=== PATIENT | male | born 1970 | race Caucasian/White ===

== ENCOUNTER 2017-01-22 07:27 | Emergency (ER) | payer OTHER ==
[~2017-01-22] VITALS: Ht 157.5 cm; Wt 91.3 kg
[2017-01-22 07:30] VITALS: Ht 157.5 cm; Wt 91.3 kg
--- NOTE | 2017-01-22 08:08 | ERD ---
ER Documentation Chief Complaint Chief Complaint Comnp[plains of rectal bleed since x 1 week HPI 46-year-old male with history of pituitary tumor on bromocriptine ambulatory to the emergency department complaining of rectal bleeding and weight loss. Over the last 4 months she has had intermittent episodes of illness, bright red rectal bleeding most recently yesterday. Nausea but no vomiting, diarrhea, constipation or hematemesis. Unintentional 25 pound weight loss over the last month but denies anorexia. Has been feeling increasingly weak and lightheaded over the last several days. No chest pain or palpitations. Denies headache, visual changes, focal weakness or numbness. No neck or back pain. No fevers, chills or night sweats. Anxiety and stress but denies depression. Evaluated by his primary care physician and diagnosed with internal hemorrhoids. ROS All systems reviewed and are negative except as per history of present illness. Allergies Allergies: Coded Allergies: No Known Allergy (Unverified , 01/22/17) PMhx/Soc Reviewed in chart. As per HPI. History of Surgery: No Hx Neurological Disorder: Yes (Benign pituitary tumor) Hx Respiratory Disorders: No Hx Cardiac Disorders: No Hx Psychiatric Problems: No Hx Miscellaneous Medical Probl: No Hx Alcohol Use: Yes (Social) Hx Substance Use: No Hx Tobacco Use: No FmHx No stroke, cancer or sudden cardiac Physical Exam Vitals Vital Signs Date Time Temp Pulse Resp B/P Pulse Ox O2 Delivery O2 Flow Rate FiO2 01/22/17 11:49 87 18 118/94 98 Room Air 01/22/17 07:30 97.4 40 20 153/80 98 Physical Exam Const: Alert, anxious. Head: Atraumatic Eyes: Normal Conjunctiva ENT: Normal External Ears, Nose and Mouth. Neck: Full range of motion. Nontender, no meningismus. Resp: Sounds are equal and clear to auscultation bilaterally Cardio: Regular rate and rhythm, no murmurs Abd: Soft, non tender, non distended. Normal bowel sounds. Rectal examination: Normal tone, no masses, brown stool which is heme-negative. Skin: No petechiae or rashes Back: No midline or flank tenderness Ext: No cyanosis, or edema Neur: Awake and alert. No focal deficit observed. Psych: Patient appears anxious but not depressed. Result Diagram: 01/22/17 0750 01/22/17 0750 Results 24 hrs Laboratory Tests Test 01/22/17 07:50 01/22/17 08:04 White Blood Count 9.410^3/ul Red Blood Count 5.4010^6/ul Hemoglobin 16.5g/dl Hematocrit 49.0% Mean Corpuscular Volume 90.7fl Mean Corpuscular Hemoglobin 30.6pg Mean Corpuscular Hemoglobin Concent 33.7g/dl Red Cell Distribution Width 12.9% Platelet Count 34842^3/UL Mean Platelet Volume 9.9fl Neutrophils % 61.8% Lymphocytes % 29.0% Monocytes % 7.2% Eosinophils % 1.1% Basophils % 0.6% Nucleated Red Blood Cells % 0.0/100WBC Neutrophils # 5.810^3/ul Lymphocytes # 2.710^3/ul Monocytes # 0.710^3/ul Eosinophils # 0.110^3/ul Basophils # 0.110^3/ul Nucleated Red Blood Cells # 0.010^3/ul Prothrombin Time 13.3Sec Prothrombin Time Ratio 1.0 INR International Normalized Ratio 1.00 Activated Partial Thromboplast Time 36.5Sec Sodium Level 144mmol/L Potassium Level 3.6mmol/L Chloride Level 102mmol/L Carbon Dioxide Level 28mmol/L Anion Gap 18 Blood Urea Nitrogen 13mg/dl Creatinine 0.92mg/dl Glucose Level 94mg/dl Calcium Level 8.9mg/dl Total Bilirubin 0.7mg/dl Direct Bilirubin 0.00mg/dl Indirect Bilirubin 0.7mg/dl Aspartate Amino Transf (AST/SGOT) 36IU/L Alanine Aminotransferase (ALT/SGPT) 42IU/L Alkaline Phosphatase 91IU/L Troponin I < 0.012ng/ml Total Protein 7.7g/dl Albumin 4.2g/dl Globulin 3.50g/dl Albumin/Globulin Ratio 1.20 Magnesium Level 2.0mg/dl LABS: Unremarkable EKG: TIME: 7: 36. Sinus rhythm. Ventricular rate 81. Frequent PVCs. No acute ST segment elevation or depression. No ectopy. EP Interpretation: Abnormal EKG. IMAGING: PROCEDURE: CT Abdomen and Pelvis without contrast. CLINICAL INDICATION: Weight loss, rectal bleeding. TECHNIQUE: CT scan of the abdomen and pelvis without contrast was performed on a multidetector high-resolution CT scanner. The patient was scanned without intravenous contrast. Coronal and sagittal reformatted images were obtained from the axial source images. Images were reviewed on a high-resolution PACS workstation. The total exam CTDI equals 16.82 mGy and the total exam DLP equals 1079.54 mGy-cm. One or the following dose reduction techniques were used: -Automated exposure control. -Adjustment of the mA and/or KV according to patient's size. -Use of iterative reconstruction technique. DICOM images are available. COMPARISON: None. FINDINGS: Lower thorax: Unremarkable. GI:. There is mild apparent thickening of the mucosa of the gastric fundus. Liver: Unremarkable. Gallbladder: Unremarkable. Pancreas: Unremarkable. Spleen: Unremarkablel Adrenals: Unremarkable. Kidneys: There is left-sided nephrolithiasis without evidence of urolithiasis or obstructive uropathy. Bladder: Unremarkable. Pelvic Organs: Unremarkable. Skeleton: Normal for age. Other: Small bilateral inguinal hernias containing fat only, right greater than left. IMPRESSION: 1. Mild apparent thickening of the mucosa in the gastric fundus. This is of uncertain significance on this noncontrast study. Further evaluation may be warranted. 2. Left-sided nephrolithiasis without evidence of obstructive uropathy. 3. Normal appearing appendix visualized. 4. Small inguinal hernias containing fat only. 5. No mass, lymphadenopathy or evidence of an acute inflammatory process. RPTAT: [facility] Physician Srinivas Date Time Electronically viewed and signed by Physician Srinivas on 01/22/2017 11: 07 JH/ Procedures/MDM DOCUMENTS REVIEWED: ED nurse, no prior records available REEXAMINATION/REEVALUATION: Time: 9:00. Well. Abdomen soft nontender. Sinus rhythm without ectopy. MEDICAL DECISION MAKIN-year-old male with history of pituitary tumor on bromocriptine ambulatory to the emergency department complaining of rectal bleeding and weight loss. Hemoglobin is normal and stool is negative for blood hence no active GI bleeding at this time. Recent weight loss CT abd/pelvis is remarkable for thickening of the gastric fundal mucosa which is of uncertain etiology. No diverticulosis or mass but neoplasm is not ruled out and the patient will need urgent outpatient follow-up and endoscopy. EKG revealed multiple PVCs that resolved without treatment. No chest pain, ischemic EKG changes, elevated troponin or other signs of ACS. Potassium and magnesium were normal. Hemodynamically stable. Stable for discharge of precautionary instructions and outpatient follow-up as counseled. Counseled patient regarding diagnosis, diagnostic tests and need for follow-up. Patient clearly understands that a serious etiology of his symptoms including but not limited to neoplasm is not ruled out in urgent outpatient follow-up or return to the ED if symptoms worsen is mandatory. Departure Diagnosis: Primary Impression: Rectal bleeding Additional Impressions: History of pituitary adenoma Weight loss PVCs (premature ventricular contractions) Condition: Stable CHASIDY BARRETT MD Jan 22, 2017 08:08
[2017-01-22 08:20] LABS: BASOPHIL # 0.1 10^3/ul (0.0-0.1); BASOPHILS % 0.6 % (0.0-2.0); EOSINOPHILS # 0.1 10^3/ul (0.0-0.5); EOSINOPHILS % 1.1 % (0.0-7.0); HEMOGLOBIN 16.5 g/dl (14.0-18.0); LYMPHOCYTES # 2.7 10^3/ul (0.8-2.9); MEAN CORPUSCULAR HEMOGLOBIN 30.6 pg (29.0-33.0); MEAN CORPUSCULAR HGB CONC 33.7 g/dl (32.0-37.0); MEAN CORPUSCULAR VOLUME 90.7 fl (82.0-101.0); MEAN PLATELET VOLUME 9.9 fl (7.4-10.4); MONOCYTE # 0.7 10^3/ul (0.3-0.9); MONOCYTES % 7.2 % (0.0-11.0); NEUTROPHIL # 5.8 10^3/ul (1.6-7.5); NEUTROPHILS % 61.8 % (39.0-77.0); PLATELET COUNT 254 10^3/UL (140-415); RED CELL DISTRIBUTION WIDTH 12.9 % (11.5-14.5); WHITE BLOOD COUNT 9.4 10^3/ul (4.8-10.8)
[2017-01-22 08:36] LABS: PROTIME 13.3 Sec (11.9-14.9)
[2017-01-22 08:37] LABS: PARTIAL THROMBOPLASTIN TIME 36.5 Sec (25.0-35.0)
[2017-01-22 08:55] LABS: ALANINE AMINOTRANSFERASE 42 IU/L (13-69); ALBUMIN 4.2 g/dl (3.3-4.9); ALKALINE PHOSPHATASE 91 IU/L (42-121); ANION GAP 18 (8-16); ASPARTATE AMINO TRANSFERASE 36 IU/L (15-46); BILIRUBIN,INDIRECT 0.7 mg/dl (0-1.1); BILIRUBIN,TOTAL 0.7 mg/dl (0.2-1.3); BLOOD UREA NITROGEN 13 mg/dl (7-20); CALCIUM 8.9 mg/dl (8.4-10.2); CARBON DIOXIDE 28 mmol/L (21-31); CHLORIDE 102 mmol/L (97-110); CREATININE 0.92 mg/dl (0.61-1.24); GLUCOSE 94 mg/dl (70-220); POTASSIUM 3.6 mmol/L (3.5-5.1); SODIUM 144 mmol/L (135-144); TOTAL PROTEIN 7.7 g/dl (6.1-8.1)
[2017-01-22 09:08] LABS: TROPONIN-I < 0.012 ng/ml (0.00-0.12)
--- NOTE | 2017-01-22 11:08 | RADRPT ---
PROCEDURE: CT Abdomen and Pelvis without contrast. CLINICAL INDICATION: Weight loss, rectal bleeding. TECHNIQUE: CT scan of the abdomen and pelvis without contrast was performed on a multidetector hig h-resolution CT scanner. The patient was scanned without intravenous contrast. Coronal and sagittal reformatted images were obtained from the axial source images. Images were reviewed on a high-resol [employer] PACS workstation. The total exam CTDI equals 16.82 mGy and the total exam DLP equals 1079.54 m Gy-cm. One or the following dose reduction techniques were used: -Automated exposure control. -Adjustment of the mA and/or KV according to patient's size. -Use of iterative reconstruction technique. DICOM images are available. COMPARISON: None. FINDINGS: Lower thorax: Unremarkable. GI:. There is mild apparent thickening of the mucosa of the gastric fundus. Liver: Unremarkable. Gallbladder: Unremarkable. Pancreas: Unremarkable. Spleen: Unremarkablel Adrenals: Unremarkable. Kidneys: There is left-sided nephrolithiasis without evidence of urolithiasis or obstructive uropath y. Bladder: Unremarkable. Pelvic Organs: Unremarkable. Skeleton: Normal for age. Other: Small bilateral inguinal hernias containing fat only, right greater than left. IMPRESSION: 1. Mild apparent thickening of the mucosa in the gastric fundus. This is of uncertain significance o n this noncontrast study. Further evaluation may be warranted. 2. Left-sided nephrolithiasis without evidence of obstructive uropathy. 3. Normal appearing appendix visualized. 4. Small inguinal hernias containing fat only. 5. No mass, lymphadenopathy or evidence of an acute inflammatory process. RPTAT: [facility] Physician Srinivas Date Time Electronically viewed and signed by Physician Srinivas on 01/22/2017 11:07 /
[2017-01-22 11:49] VITALS: BP 118/94; PULSE 87; RESP 18
== END 2017-01-22 11:56 | disposition home or self-care (01) ==
LOC: E/R 07:27
DX: K62.5 Hemorrhage of anus and rectum (principal); R63.4 Abnormal weight loss; I49.3 Ventricular premature depolarization; Z86.018 Personal history of other benign neoplasm
CPT/HCPCS: 36415; 74176; 80053; 83735; 84484; 85025; 85610; 85730; 86850; 86900; 86901; 93005; Z7502

== ENCOUNTER 2017-08-08 05:55 | Emergency (ER) | END 2017-08-08 16:17 | disposition home or self-care (01) ==

== ENCOUNTER 2018-02-14 14:53 | Emergency (ER) | payer SELFPAY ==
[~2018-02-14] VITALS: Ht 175.3 cm; Wt 92.6 kg
[~2018-02-14 14:53] MED LIST: BROM2.5T16 PO
[2018-02-14 14:56] VITALS: Ht 175.3 cm; Wt 92.6 kg
== END 2018-02-14 19:01 | disposition left against medical advice (07) ==
LOC: E/R 14:53
DX: Z53.21 Procedure and treatment not carried out due to patient leaving prior to being seen by health care provider (principal)

== ENCOUNTER 2018-03-23 11:08 | Observation (INO) | payer OTHER ==
[~2018-03-23] VITALS: Ht 177.8 cm; Wt 95.6 kg
[2018-03-23] MEDS ORDERED: ASPIRIN 81 MG TAB PO STA (11:24)
[2018-03-23] MEDS ORDERED: NITROGLYCERIN 2% 1 GM OINT PKT TD STA (11:24)
[2018-03-23] MEDS ORDERED: NITROGLYCERIN (SL) 0.4 MG TAB SL PRN ×2 (11:30→15:00)
[2018-03-23] MEDS ORDERED: TEST1.25 TD (12:07)
[2018-03-23] MEDS ORDERED: ONDANSETRON 4 MG INJ IV PRN ×2 (13:00→15:00)
[2018-03-23] MEDS ORDERED: ACETAMINOPHEN 325 MG TAB PO PRN ×2 (13:00→15:00)
--- NOTE | 2018-03-23 13:10 | ERD ---
ER Documentation Chief Complaint Chief Complaint CHEST PAIN, SENT BY PCP FOR ABNORMAL EKG HPI Patient is a 47-year-old male with no medical problems who presents with chest pain. The patient was sent by his doctor for chest pain and abnormal EKG. If left-sided chest pain which started a long time ago but said that today it was associated with shortness of breath. He has had no treatment as of yet. He is on AndroGel for a pituitary issue that he had in the past. Upon review of old medical records this is the patient's fifth visit to the ER since 2017. ROS All systems reviewed and are negative except as per history of present illness. Medications Home Meds Reported Medications Testosterone* (Androgel*) 1.62%-1.25gm Gel..ea., 1.25 GM TD 2 TIMES PER WEEK, PACKET 03/23/18 Bromocriptine Mesylate* (Parlodel*) 2.5 Mg Tablet, 2.5 MG PO DAILY, TAB 08/08/17 Allergies Allergies: Coded Allergies: No Known Allergy (Unverified , 03/23/18) PMhx/Soc History of Surgery: No Anesthesia Reaction: No Hx Neurological Disorder: Yes (Benign pituitary tumor) Hx Respiratory Disorders: No Hx Cardiac Disorders: No Hx Psychiatric Problems: No Hx Miscellaneous Medical Probl: No Hx Alcohol Use: Yes (Social) Hx Substance Use: No Hx Tobacco Use: No FmHx Family History: No coronary disease Physical Exam Vitals Vital Signs Date Temp Pulse Resp B/P (MAP) Pulse Ox O2 O2 Flow FiO2 Time Delivery Rate 03/23/18 Nasal 2 11:25 Cannula 03/23/18 97.6 46 17 159/92 100 11:11 (114) Physical Exam Const: No acute distress Head: Atraumatic Eyes: Normal Conjunctiva ENT: Normal External Ears, Nose and Mouth. Neck: Full range of motion. No meningismus. Resp: Clear to auscultation bilaterally Cardio: Regular rate and rhythm, no murmurs Abd: Soft, non tender, non distended. Normal bowel sounds Skin: No petechiae or rashes Back: No midline or flank tenderness Ext: No cyanosis, or edema Neur: Awake and alert Psych: Normal Mood and Affect Result Diagram: 03/23/18 1124 03/23/18 1124 Results 24 hrs Laboratory Tests Test 03/23/18 11:24 White Blood Count 5.5 10^3/ul Red Blood Count 5.02 10^6/ul Hemoglobin 15.5 g/dl Hematocrit 46.0 % Mean Corpuscular Volume 91.6 fl Mean Corpuscular Hemoglobin 30.9 pg Mean Corpuscular Hemoglobin Concent 33.7 g/dl Red Cell Distribution Width 13.1 % Platelet Count 223 10^3/UL Mean Platelet Volume 9.5 fl Immature Granulocytes % 0.400 % Neutrophils % 57.5 % Lymphocytes % 31.6 % Monocytes % 8.7 % Eosinophils % 1.1 % Basophils % 0.7 % Nucleated Red Blood Cells % 0.0 /100WBC Immature Granulocytes # 0.020 10^3/ul Neutrophils # 3.2 10^3/ul Lymphocytes # 1.8 10^3/ul Monocytes # 0.5 10^3/ul Eosinophils # 0.1 10^3/ul Basophils # 0.0 10^3/ul Nucleated Red Blood Cells # 0.0 10^3/ul Sodium Level 140 mmol/L Potassium Level 3.9 mmol/L Chloride Level 106 mmol/L Carbon Dioxide Level 27 mmol/L Anion Gap 7 Blood Urea Nitrogen 18 mg/dl Creatinine 0.83 mg/dl Est Glomerular Filtrat Rate mL/min > 60 mL/min Glucose Level 101 mg/dl Calcium Level 9.0 mg/dl Troponin I < 0.012 ng/ml Current Medications Medications Dose Sig/Surekha Start Time Status Last (Trade) Ordered Route PRN Stop Time Admin Dose Reason Admin Aspirin 162 mg ONCE STAT 03/23/18 DC 03/23/18 (Aspirin) PO 11:24 11:36 03/23/18 11:25 1 inch ONCE STAT 03/23/18 DC 03/23/18 Nitroglycerin TD 11:24 11:36 03/23/18 11:25 (Nitroglyceri n 2% Oint) 1 tab Q5M UP TO 3 03/23/18 03/23/18 Nitroglycerin DOSES PRN 11:30 11:42 SL .CHEST (Nitroglyceri PAIN n (Sl Tab) 0.4 Mg) Ondansetron 4 mg ER BRIDGE 03/23/18 HCl (Zofran PRN IV 13:00 Inj) NAUSEA/VOMITI 03/24/18 12:59 NG 650 mg ER BRIDGE 03/23/18 Acetaminophen PRN PO 13:00 (Tylenol .MILD PAIN 03/24/18 12:59 Tab) 1-3 OR TEMP Procedures/MDM EKG read by me: Rate/Rhythm: Regular rate and rhythm at a normal rate Intervals: Normal Impression: No ST elevations but there are frequent PVCs Chest x-ray read by radiology. Patient is a 47-year-old male who presents with chest pain and abnormal EKG. The patient was given aspirin and nitroglycerin. The patient will be admitted to a telemetry observation bed to the panel team. I doubt pneumonia, pneumothorax, pulmonary embolism, or aortic dissection. Departure Diagnosis: Primary Impression: Chest pain Chest pain type: unspecified Qualified Codes: R07.9 - Chest pain, unspecified Condition: OLVIN Foster MD Mar 23, 2018 13:10
--- NOTE | 2018-03-23 14:56 | HP ---
Date/Time of Note Date/Time of Note DATE: 03/23/18 TIME: 14:49 Assessment/Plan VTE Prophylaxis SCD applied (from Nsg): Yes Pharmacological prophylaxis: NA/contraindicated Pharm contraindication: low risk/ambulating Lines/Catheters IV Catheter Type (from Nrsg): Saline Lock Assessment/Plan Hospital Course SUBJECTIVE: Seen and evaluated patient in ER room 12. Denies any acute discomfort, chest pain, palpitation or others. OBJECTIVE: Vital signs-see below PHYSICAL EXAM: Constitutional: Well-developed, adequately built, lying in bed comfortably. Psych: nl mood/affect, no complaints Head: atraumatic, normocephalic Eyes: nl conjunctiva, nl sclera ENMT: mucosa pink and moist, nl external ears & nose Neck: non-tender, supple Respiratory: clear to auscultation, normal air movement Cardiovascular: nl pulses, regular rate and rhythm Gastrointestinal: non-tender, soft, bowel sounds active in all 4 quadrants. Musculoskeletal/extremities: nl extremities to inspection, motor strength equal bilaterally, no focal deficit. Normal pulses,no cyanosis, no edema. Neurological: Alert oriented 3,nl speech, nl strength Skin: nl turgor ASSESSMENT/PLAN: 47-year-old male with a history of pituitary tumor on hormonal replacement, sent by PCP for evaluation of chest pain occurred 2 months ago, noted to have abnormal EKG. 1. Abnormal EKG w/PAC -Patient reported chest pain occurred 2 months ago,currently no pain. -Repeat EKG showed sinus rhythm with PAC. -Cardiology consult -Complete ACS rule out with serial troponin, serial EKGs. -Aspirin prophylaxis, PRN nitroglycerin if chest pain occurs -Monitor lites, add magnesium level. -Obtain TSH level. 2. History of pituitary tumor -Resume home medication DVT prophylaxis: SCDs PUD prophylaxis: Pepcid CODE STATUS: Full code Diet: Low-cholesterol/low-fat diet. Rest of the management depend on hospital course. Approximately 60 m spent on this history and physical. Patient was seen in collaboration with Result Diagram: 03/23/18 1124 03/23/18 1124 Results 24hrs Laboratory Tests Test 03/23/18 11:24 White Blood Count 5.5 Red Blood Count 5.02 Hemoglobin 15.5 Hematocrit 46.0 Mean Corpuscular Volume 91.6 Mean Corpuscular Hemoglobin 30.9 Mean Corpuscular Hemoglobin Concent 33.7 Red Cell Distribution Width 13.1 Platelet Count 223 Mean Platelet Volume 9.5 Immature Granulocytes % 0.400 Neutrophils % 57.5 Lymphocytes % 31.6 Monocytes % 8.7 Eosinophils % 1.1 Basophils % 0.7 Nucleated Red Blood Cells % 0.0 Immature Granulocytes # 0.020 Neutrophils # 3.2 Lymphocytes # 1.8 Monocytes # 0.5 Eosinophils # 0.1 Basophils # 0.0 Nucleated Red Blood Cells # 0.0 Sodium Level 140 Potassium Level 3.9 Chloride Level 106 Carbon Dioxide Level 27 Anion Gap 7 Blood Urea Nitrogen 18 Creatinine 0.83 Est Glomerular Filtrat Rate mL/min > 60 Glucose Level 101 Calcium Level 9.0 Troponin I < 0.012 HPI/ROS Admit Date/Time Admit Date/Time Hx of Present Illness 47-year-old male with a benign history of pituitary tumor, on hormonal replacement therapy, was sent by the primary care physician for further inpatient cardiac workup for abnormal EKG with PVCs. Apparently, patient went to PCP office for checkup and reported having vague chest discomfort and breathing difficulties happened 2 months ago. PCP did do an EKG which showed PVCs with nonspecific T changes. He did not have any palpitation, breathing difficulties, nausea, vomiting, abdominal pain, loss of consciousness, dizziness, diaphoresis, numbness, tingling, fever, chills or other constitutional symptoms. In ER, a repeat EKG showed sinus rhythm with occasional PVCs. There was no ST or T wave changes. Labs unremarkable,initial troponin negative. Chest x-ray stable. Patient was given aspirin 162 mg and nitroglycerin 1 inch patch in the ER. ROS A 12 point review of system was assessed and is negative other than what is mentioned in the HPI PMH/Family/Social Past Medical History See HPI Medications Current Medications Nitroglycerin (Nitroglycerin (Sl Tab) 0.4 Mg) 1 tab Q5M UP TO 3 DOSES PRN SL .CHEST PAIN Last administered on 03/23/18at 11:42; Admin Dose 1 TAB; Start 03/23/18 at 11:30 Ondansetron HCl (Zofran Inj) 4 mg ER BRIDGE PRN IV NAUSEA/VOMITING; Start 03/23/18 at 13:00; Stop 03/24/18 at 12:59 Acetaminophen (Tylenol Tab) 650 mg ER BRIDGE PRN PO .MILD PAIN 1-3 OR TEMP; Start 03/23/18 at 13:00; Stop 03/24/18 at 12:59 Coded Allergies: No Known Allergy (Unverified , 03/23/18) Past Surgical History None Social History Denied history of alcohol, smoking or illicit drug use. Smoking Status: Never smoker Exam/Review of Systems Vital Signs Vitals Vital Signs Date Temp Pulse Resp B/P (MAP) Pulse Ox O2 O2 Flow FiO2 Time Delivery Rate 03/23/18 72 18 124/84 98 Room Air 13:11 (97) 03/23/18 2 11:25 03/23/18 97.6 11:11 ANASTASIIA GOMEZ NP Mar 23, 2018 14:56
[2018-03-23 15:00] VITALS: Ht 177.8 cm; Wt 95.6 kg
[2018-03-23] MEDS ORDERED: morphine 2 MG INJ IV PRN (15:00)
[2018-03-23] MEDS ORDERED: NACL 0.9% 3 ML SYG IV SCH (15:00)
[2018-03-23] MEDS ORDERED: DOCUSATE SODIUM 100 MG CAP PO PRN (15:00)
[2018-03-23 15:08] VITALS: BP 114/75; PULSE 57; RESP 16
[2018-03-23 15:24] VITALS: PULSE 59
--- NOTE | 2018-03-23 15:48 | CONS ---
Assessment/Plan Assessment/Plan Hospital Course (Demo Recall) PVCs Preserved ejection fraction echocardiogram August 2017 Normal cardiac perfusion study August 2017 Pituitary tumor -Patient was sent from the primary care physician secondary to abnormal echoca rdiogram. As mentioned he is asymptomatic with no symptoms of chest pain, shortness of breath, palpitations, dizziness. I assume the abnormality seen was borderline inferior Q waves and PVCs. Patient with recent cardiac workup at our facility done in August 2017 with normal cardiac perfusion study on stress test and preserved ejection fraction. Patient ordered for second set of cardiac enzymes, would also get magnesium level ideally maintain above 2.0 given PVCs. With that said, given patient is asymptomatic, no further inpatient cardiac workup necessary at the current time. Consultation Date/Type/Reason Admit Date/Time Type of Consult Cardiology Reason for Consultation Cardiology evaluation Date/Time of Note DATE: 03/23/18 TIME: 15:42 Hx of Present Illness This is a 47-year-old male with past medical history of pituitary tumor who presents from his primary care doctor secondary to an abnormal ECG. Patient went to see his physician secondary to joint pains going on for the past few months. As per the patient, when the physician was auscultating his heart, he heard irregularities. ECG was performed and given the findings, he was brought to the emergency room. Patient denies any symptoms of chest pain, shortness of breath, dizziness, palpitations at rest or with activity. His last episode of chest discomfort was over the summer time when he was at our facility and underwent cardiac evaluation. 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 12 point review of systems was performed with all pertinent positives and negatives mentioned above and all else is negative Past Medical History Pituitary tumor Home Meds Reported Medications Testosterone* (Androgel*) 1.62%-1.25gm Gel..ea., 1.25 GM TD 2 TIMES PER WEEK, PACKET 03/23/18 Bromocriptine Mesylate* (Parlodel*) 2.5 Mg Tablet, 2.5 MG PO DAILY, TAB 08/08/17 Medications Current Medications Bromocriptine Mesylate (Parlodel) 2.5 mg DAILY PO ; Start 03/24/18 at 09:00 IV Flush (NS 3 ml) 3 ml PER PROTOCOL IV ; Start 03/23/18 at 15:00 Ondansetron HCl (Zofran Inj) 4 mg Q6H PRN IV NAUSEA/VOMITING; Start 03/23/18 at 15:00 Acetaminophen (Tylenol Tab) 650 mg Q6H PRN PO .PAIN 1-3 OR TEMP; Start 03/23/18 at 15:00 Morphine Sulfate (morphine) 2 mg Q4H PRN IV .SEVERE PAIN 7-10; Start 03/23/18 at 15:00 Docusate Sodium (Colace) 100 mg Q12H PRN PO .CONSTIPATION; Start 03/23/18 at 15:00 Famotidine (Pepcid) 20 mg Q12 PO ; Start 03/23/18 at 21:00 Aspirin (Aspirin) 81 mg DAILY PO ; Start 03/24/18 at 09:00 Nitroglycerin (Nitroglycerin (Sl Tab) 0.4 Mg) 1 tab Q5M PRN SL ANGINA; Start at 15:00 Allergies: Coded Allergies: No Known Allergy (Unverified , 03/23/18) Social History Smoking Status: Never smoker Exam/Review of Systems Vital Signs Vitals Vital Signs Date Temp Pulse Resp B/P (MAP) Pulse Ox O2 O2 Flow FiO2 Time Delivery Rate 03/23/18 59 15:24 03/23/18 98.2 16 114/75 95 15:08 (88) 03/23/18 Room Air 14:29 03/23/18 2 11:25 Exam Constitutional: alert, oriented, well developed (No apparent distress, family bedside) Head: normocephalic Respiratory: clear to auscultation, normal air movement Cardiovascular: regular rate and rhythm (S1-S2 heard, no murmurs appreciated) Gastrointestinal: soft, non-tender, bowel sounds Extremities: other (No significant edema) Labs Result Diagram: 03/23/18 1124 03/23/18 1124 Results 24hrs Laboratory Tests Test 03/23/18 11:24 White Blood Count 5.5 Red Blood Count 5.02 Hemoglobin 15.5 Hematocrit 46.0 Mean Corpuscular Volume 91.6 Mean Corpuscular Hemoglobin 30.9 Mean Corpuscular Hemoglobin Concent 33.7 Red Cell Distribution Width 13.1 Platelet Count 223 Mean Platelet Volume 9.5 Immature Granulocytes % 0.400 Neutrophils % 57.5 Lymphocytes % 31.6 Monocytes % 8.7 Eosinophils % 1.1 Basophils % 0.7 Nucleated Red Blood Cells % 0.0 Immature Granulocytes # 0.020 Neutrophils # 3.2 Lymphocytes # 1.8 Monocytes # 0.5 Eosinophils # 0.1 Basophils # 0.0 Nucleated Red Blood Cells # 0.0 Sodium Level 140 Potassium Level 3.9 Chloride Level 106 Carbon Dioxide Level 27 Anion Gap 7 Blood Urea Nitrogen 18 Creatinine 0.83 Est Glomerular Filtrat Rate mL/min > 60 Glucose Level 101 Calcium Level 9.0 Troponin I < 0.012 Imaging Imaging ECG performed at our facility demonstrates sinus rhythm at 80 bpm, PVCs, QRS 106 ms, no significant ischemic ST abnormalities ECG performed this morning at an outside facility at 10:44 AM demonstrates sinus rhythm, PVCs, borderline inferior Q waves, no significant ischemic abnormalities Medications Medications Current Medications Bromocriptine Mesylate (Parlodel) 2.5 mg DAILY PO ; Start 03/24/18 at 09:00 IV Flush (NS 3 ml) 3 ml PER PROTOCOL IV ; Start 03/23/18 at 15:00 Ondansetron HCl (Zofran Inj) 4 mg Q6H PRN IV NAUSEA/VOMITING; Start 03/23/18 at 15:00 Acetaminophen (Tylenol Tab) 650 mg Q6H PRN PO .PAIN 1-3 OR TEMP; Start 03/23/18 at 15:00 Morphine Sulfate (morphine) 2 mg Q4H PRN IV .SEVERE PAIN 7-10; Start 03/23/18 at 15:00 Docusate Sodium (Colace) 100 mg Q12H PRN PO .CONSTIPATION; Start 03/23/18 at 15:00 Famotidine (Pepcid) 20 mg Q12 PO ; Start 03/23/18 at 21:00 Aspirin (Aspirin) 81 mg DAILY PO ; Start 03/24/18 at 09:00 Nitroglycerin (Nitroglycerin (Sl Tab) 0.4 Mg) 1 tab Q5M PRN SL ANGINA; Start 03/23/18 at 15:00 Cyrus Corona DO Mar 23, 2018 15:48
[2018-03-23 16:21] VITALS: PULSE 66
--- NOTE | 2018-03-23 18:50 | NUR ---
EOSS- Pt resting in bed comfortably, no complaints of any pain or discomfort. Pt on RA, VS stable. Pending discharge tomorrow once labs are completed. Will endorse care to nightshift.
[2018-03-23 20:00] VITALS: BP 126/70; PULSE 64; PULSE 73; RESP 19
[2018-03-23] MEDS: FAMOTIDINE 20 MG TAB PO SCH (21:09)
[2018-03-24] VITALS: BP 125/66; PULSE 40; PULSE 67; RESP 19
[2018-03-24 04:00] VITALS: BP 120/76; PULSE 58; PULSE 60; RESP 19
--- NOTE | 2018-03-24 06:28 | NUR ---
EOSS N: A&Ox4, no complaints of pain. R: RA, saturating well, no sob or dyspnea CV: NSR, SB. No Chest pain GI/: Unremarkable MS: Ambulates, steady. POC: Troponin negative x2. Waiting for echo, labs. Most likely dc today.
[2018-03-24 07:11] VITALS: BP 123/86; PULSE 54; RESP 19
[2018-03-24 08:00] VITALS: PULSE 85
--- NOTE | 2018-03-24 08:44 | PDOCDIS ---
Discharge Instructions CONDITION [id number] Patient Condition: [id number] Stable HOME CARE INSTRUCTIONS: [id number] Diet Instructions: [id number] Regular FOLLOW UP/APPOINTMENTS Follow-up Plan Follow-up with primary care physician in 1 week ANASTASIIA GOMEZ NP Mar 24, 2018 08:44
--- NOTE | 2018-03-24 08:48 | DS ---
Date/Time of Note Date/Time of Note DATE: 03/24/18 TIME: 08:47 Discharge Summary Admission/Discharge Info Admit Date/Time Mar 23, 2018 at 12:47 Discharge Date/Time Discharge Diagnosis 1. Abnormal EKG w/PVC.STABLE 2. History of pituitary tumor Patient Condition: Stable Consults , cardiology Procedures 03/23/2018. Chest x-ray. MPRESSION: No acute cardiopulmonary disease. Mild left basilar discoid atelectasis. 03/23/2018, echocardiogram, pending result, to follow-up Hospital Course 47-year-old male with a history of pituitary tumor, on hormonal replacement, was sent from primary care physician's office for workup for abnormal EKG with inferior Q waves and PVCs. Patient did not have any chest pain, palpitation, diaphoresis, shortness of breath, nausea, vomiting, dizziness or other constitutional symptoms. Patient was admitted and ACS was ruled out with serial troponin and repeat EKG. Patient also had cardiology evaluation. According to the shelf filler, patient had cardiac workup in August 2017 with normal perfusion study with preserved ejection fraction. He did not require any further inpatient cardiac workup and was medically cleared for discharge with outpatient follow-up. Patient's echocardiogram is pending which shelf filler will follow up. Approximately 60 m spent on coordinating the discharge on this patient. Patient was seen in collaboration with [facility] Reported Medications Testosterone* (Androgel*) 1.62%-1.25gm Gel..ea., 1.25 GM TD 2 TIMES PER WEEK, PACKET 03/23/18 Bromocriptine Mesylate* (Parlodel*) 2.5 Mg Tablet, 2.5 MG PO DAILY, TAB 08/08/17 Follow-up Plan Follow-up with primary care physician in 1 week Primary Care Provider Not On Staff Doctor Pending Labs Laboratory Tests Test 03/23/18 11:24 03/23/18 18:05 03/24/18 05:55 White Blood Count 5.5 9.2 10^3/ul (4.8-10.8) 10^3/ul (4.8-10.8) Red Blood Count 5.02 4.84 10^6/ul (4.70-6.10) 10^6/ul (4.70-6.10 ) Hemoglobin 15.5 14.8 g/dl (14.0-18.0) g/dl (14.0-18.0) Hematocrit 46.0 % (42.0-52.0) 44.3 % (42.0-52.0) Mean Corpuscular 91.6 91.5 Volume fl (82.0-101.0) fl (82.0-101.0) Mean Corpuscular 30.9 pg (29.0-33.0) 30.6 Hemoglobin pg (29.0-33.0) Mean Corpuscular 33.7 33.4 Hemoglobin Concent g/dl (32.0-37.0) g/dl (32.0-37.0) Red Cell 13.1 % (11.5-14.5) 13.1 % (11.5-14.5) Distribution Width Platelet Count 223 216 10^3/UL (140-415) 10^3/UL (140-415) Mean Platelet 9.5 fl (7.4-10.4) 9.5 fl (7.4-10.4) Volume Immature 0.400 0.300 Granulocytes % % (0.001-0.429) % (0.001-0.429) Neutrophils % 57.5 % (39.0-77.0) 66.9 % (39.0-77.0) Lymphocytes % 31.6 % (15.0-51.0) 22.6 % (15.0-51.0) Monocytes % 8.7 % (0.0-11.0) 8.7 % (0.0-11.0) Eosinophils % 1.1 % (0.0-7.0) 1.0 % (0.0-7.0) Basophils % 0.7 % (0.0-2.0) 0.5 % (0.0-2.0) Nucleated Red Blood 0.0 0.0 Cells % /100WBC (0.0-0.0) /100WBC (0.0-0.0) Immature 0.020 0.030 Granulocytes # 10^3/ul (0.0-0.031) 10^3/ul (0.0-0.031 ) Neutrophils # 3.2 6.1 10^3/ul (1.6-7.5) 10^3/ul (1.6-7.5) Lymphocytes # 1.8 2.1 10^3/ul (0.8-2.9) 10^3/ul (0.8-2.9) Monocytes # 0.5 0.8 10^3/ul (0.3-0.9) 10^3/ul (0.3-0.9) Eosinophils # 0.1 0.1 10^3/ul (0.0-0.5) 10^3/ul (0.0-0.5) Basophils # 0.0 0.1 10^3/ul (0.0-0.1) 10^3/ul (0.0-0.1) Nucleated Red Blood 0.0 0.0 Cells # 10^3/ul (0.0-0.0) 10^3/ul (0.0-0.0) Sodium Level 140 139 mmol/L (135-144) mmol/L (135-144) Potassium Level 3.9 4.2 mmol/L (3.5-5.1) mmol/L (3.5-5.1) Chloride Level 106 mmol/L (97-110) 104 mmol/L (97-110) Carbon Dioxide 27 mmol/L (21-31) 27 mmol/L (21-31) Level Anion Gap 7 (5-13) 8 (5-13) Blood Urea 18 mg/dl (7-20) 16 mg/dl (7-20) Nitrogen Creatinine 0.83 0.94 mg/dl (0.61-1.24) mg/dl (0.61-1.24) Est Glomerular > 60 mL/min (>60) > 60 mL/min (>60) Filtrat Rate mL/min Glucose Level 101 mg/dl (70-220) 87 mg/dl (70-220) Calcium Level 9.0 8.8 mg/dl (8.4-10.2) mg/dl (8.4-10.2) Magnesium Level 2.1 mg/dl (1.7-2.5) 2.2 2.1 mg/dl (1.7-2.5) mg/dl (1.7-2.5) Troponin I < 0.012 < 0.012 ng/ml (0.000-0.120) ng/ml (0.000-0.120 ) Creatine Kinase 67 IU/L (23-200) Creatine Kinase 0.5 Index Creatinine Kinase 0.35 MB (Mass) ng/ml (0.0-2.4) Hemoglobin A1c 5.2 % (0-5.9) Phosphorus Level 3.4 mg/dl (2.5-4.9) Total Bilirubin 1.3 mg/dl (0.2-1.3) Direct Bilirubin 0.00 mg/dl (0.00-0.20) Indirect Bilirubin 1.3 mg/dl (0-1.1) Aspartate Amino 29 IU/L (15-46) Transf (AST/SGOT) Alanine 36 IU/L (13-69) Aminotransferase (A LT/SGPT) Alkaline 55 IU/L (42-121) Phosphatase Total Protein 7.2 g/dl (6.1-8.1) Albumin 3.9 g/dl (3.3-4.9) Globulin 3.30 g/dl (1.3-3.2) Albumin/Globulin 1.18 Ratio Triglycerides 105 mg/dl (0-149) Level Cholesterol Level 191 mg/dl (100-200) LDL Cholesterol, 125 mg/dl Calculated HDL Cholesterol 45 mg/dl (28-71) Cholesterol/HDL 4.2 RATIO Ratio Thyroid Stimulating 1.520 Hormone (TSH) MIU/L (0.465-4.680 ) ANASTASIIA GOMEZ NP Mar 24, 2018 08:48
[2018-03-24] MEDS ORDERED: BROMOCRIPTINE 2.5 MG TAB PO SCH (09:00)
[2018-03-24] MEDS ORDERED: INFLUENZA VIRUS VACCINE 0.5 ML (DISPENSING) IM* ONE (09:00)
[2018-03-24] MEDS ORDERED: ASPIRIN 81 MG TAB PO SCH (09:00)
[2018-03-24] MEDS: FAMOTIDINE 20 MG TAB PO SCH (09:03)
[2018-03-24 11:19] VITALS: BP 122/83; PULSE 68; RESP 19
[2018-03-24 12:00] VITALS: PULSE 66
--- NOTE | 2018-03-24 13:28 | NUR ---
DISCHARGE- Went over discharge planning with pt. Pt does not have any new prescriptions or new medications. Pt to continue home meds. Pt to follow up with PCP in 1 week. Pt has no complaints of any chestpain or discomfort, IV DCed. bedside to take pt home. Pt refusing wheelchair discharge, wants to ambulate out.
--- NOTE | 2018-03-24 15:15 | RADRPT ---
Echocardiogram Report Patient Name: Leigh ESPARZAnt ID: [id number] : [id number] (47y 5m)Study Date: 03/24/2018 8:06:16 AM Gender: MAccession #: [id number] Tech: Tiburcio [facility] [place] Location: 510-A Ref.Physician: ANASTASIIA GOMEZ Height(Cm): BSA: Weight(Kg): Quality: AdequateAccount #: Procedures: Echocardiographic Report: Transthoracic echocardiogram with complete 2D, M-Mode, and doppler examination. Indications: Chest Pain. Measurements: 2D/M Mode Doppler Measurement Value Normal Range Measurement Value Normal Range LVIDd 2D 5.5 [ 4.2 - 5.8 ] cm AV Peak Aryan 1.4 [ 100.0 - 170.0 ] cm/sec LVIDs 2D 4.2 [ 2.5 - 4.0 ] cm AV Peak PG 8.0 [ 2.0 - 9.0 ] mmHg LVPWd 2D 0.9 [ 0.6 - 1.0 ] cm LVOT Peak Aryan 0.9 [ 70.0 - 110.0 ] cm/sec IVSd 2D 0.9 [ 0.6 - 1.0 ] cm LVOT Peak PG 3.0 [ 2.0 - 6.0 ] mmHg AoR Diam 2D 2.8 [ 2.6 - 3.4 ] cm MV E Peak Aryan 0.9 [ 60.0 - 130.0 ] cm/sec EDV 2D 147.0 [ 62.0 - 150.0 ] ml MV A Peak Aryan 1.0 [ 100.0 - 120.0 ] cm/sec ESV 2D 80.4 [ 21.0 - 61.0 ] ml MV E/A 0.9 [ 0.8 - 1.5 ] ratio EF 2D 45.3 [ 52.0 - 72.0 ] percent MV Decel Time 201 [ 104 - 258 ] msec LA Dimen 2D 3.4 [ 3.0 - 4.0 ] cm Lat E` Aryan 0.0 [ 10.0 - 15.0 ] cm/sec Lateral E/E` 18.4 [ 1.0 - 2.0 ] ratio Med E` Aryan 0.1 cm/sec MV E/A 0.9 [ 0.8 - 1.5 ] ratio TR Peak Aryan 2.1 [ 100.0 - 280.0 ] cm/sec TR Peak PG 18.0 mmHg RVSP 21.0 [ 10.0 - 36.0 ] mmHg Findings: Left Ventricle: Normal left ventricular systolic function. Normal left ventricular cavity size. Normal left ventricular wall thickness. Ejection fraction is visually estimated at 55 %. Tissue Doppler/Mitral Doppler indices are consistent with impaired relaxation (Stage I diastolic dysfunction). Right Ventricle: Normal right ventricular size. Normal right ventricular systolic function. Left Atrium: The left atrium is normal in size. Right Atrium: The right atrium is normal in size. Mitral Valve: Mild mitral leaflet calcification. Mild mitral annular calcification. Trace mitral regurgitation. Aortic Valve: No significant aortic stenosis or insufficiency. Aortic cusps appear mildly calcified. Tricuspid Valve: Normal appearance of the tricuspid valve. Estimated peak PA systolic pressure 21 mmHg. There is trace tricuspid regurgitation. Pulmonic Valve: Pulmonic valve not well visualized. Pericardium: Normal pericardium with no significant pericardial effusion. Aorta: Normal aortic root. IVC: Normal size and normal respiratory collapse consistent with normal right atrial pressure. Conclusions: Normal left ventricular systolic function. Normal left ventricular cavity size. Normal left ventricular wall thickness. Ejection fraction is visually estimated at 55 %. Tissue Doppler/Mitral Doppler indices are consistent with impaired relaxation (Stage I diastolic dysfunction). Normal right ventricular size. Normal right ventricular systolic function. The left atrium is normal in size. The right atrium is normal in size. No significant valvular stenosis or regurgitation seen. Normal pericardium with no significant pericardial effusion. Electronically Signed By: Cyrus Corona 2018-03-24 15:14:50 PST
== END 2018-03-24 13:04 | disposition home or self-care (01) ==
LOC: E/R 11:08 → TEL 12:47
PROVIDERS: ADMIT Internal Medicine; ATTEND Internal Medicine
DX: R94.31 Abnormal electrocardiogram [ECG] [EKG] (principal); Z23 Encounter for immunization
CPT/HCPCS: 36415; 71045; 80048; 80053; 80061; 82550; 82553; 83036; 83735; 84100; 84443; 84484; 85025; 90686; 93005; 93306; Z7500; Z7502; Z7610; G0378